=== PATIENT | female | born 1985 | race Caucasian/White ===

== ENCOUNTER 2023-06-11 07:03 | Inpatient (IN) | payer OTHER ==
[2023-06-11] MEDS ORDERED: Acetaminophen 500 MG TAB PO PRN (07:45)
[2023-06-11] MEDS ORDERED: Ondansetron PF 4 MG/2 ML Vial IVP PRN ×3 (07:45→18:27)
[2023-06-11] MEDS ORDERED: fentaNYL 50 mcg/mL 1 mL Vial SLOW IVP PRN (07:45)
[2023-06-11] MEDS ORDERED: Diphenoxylate HCl/Atropine Tablet PO PRN (07:45)
[2023-06-11] MEDS ORDERED: hydrALAZINE 20 MG/ML VIAL SLOW IVP PRN ×2 (07:45→18:27)
[2023-06-11] MEDS ORDERED: Tranexamic Acid 1,000 MG/10 ML VIAL IVP PRN (07:45)
[2023-06-11] MEDS ORDERED: Misoprostol 200 MCG TAB PR PRN (07:45)
[2023-06-11] MEDS ORDERED: Methylergonovine 0.2 MG/ML VIAL IM PRN (07:45)
[2023-06-11] MEDS ORDERED: NS w/ Oxytocin 30 units 500 ML IV SCH ×2 (07:45→18:27)
[2023-06-11] MEDS ORDERED: Carboprost 250 MCG/ML AMP IM PRN (07:45)
[2023-06-11] MEDS ORDERED: Ibuprofen 800 MG TAB PO PRN (07:48)
[2023-06-11] MEDS ORDERED: HYDROcodone/Acetaminophen 5/325 mg Tablet PO PRN ×2 (07:48→18:27)
[2023-06-11] MEDS ORDERED: Lidocaine 1% (PF) 30 ML VIAL SC PRN (07:48)
[2023-06-11] MEDS ORDERED: Acetaminophen/Codeine 30-300mg Tablet PO PRN (07:48)
[2023-06-11 07:50] VITALS: BMI 38.6
[2023-06-11] MEDS ORDERED: Bupivacaine 0.25% HCL 30 ML VIAL ONE (08:00)
[2023-06-11] MEDS ORDERED: fentaNYL/Ropivacaine Epidural 100 ML ONE (08:15)
[2023-06-11] MEDS: Lactated Ringer's 1,000 ML IV SCH ×2 (08:28→10:41)
[2023-06-11 08:33] LABS: Hematocrit 35.8 % (34.9-44.5); Hemoglobin 12.2 g/dL (12.0-15.5); Mean Corpuscular HGB CONC 34.1 g/dL (32.0-36.0); Mean Corpuscular Hemoglobin 29.1 pg (27.0-33.0); Mean Corpuscular Volume 85.4 fl (81.6-98.3); Mean Platelet Volume 10.3 fl (7.4-10.4); Platelet Count 267 10x3/uL (150-450); RBC Distribution Width 14.6 % (11.5-14.5); Red Blood Cell (RBC) Count 4.19 10x6/uL (3.90-5.03)
[2023-06-11 09:02] LABS: Syphilis Antibody Nonreactive (Nonreactive); Syphilis Antibody Index 0.06 S/CO (<1.00 Non-Reactive)
[2023-06-11 09:03] LABS: HBSAg Index 0.14 S/CO (0-0.99); Hep B Surf Ag - L&D Non-Reactive S/CO (NonReactive)
[2023-06-11] MEDS ORDERED: Naloxone HCl 0.4 mg/ml Vial IVP PRN ×2 (09:26)
[2023-06-11] MEDS ORDERED: Moisturizing Cream (Eucerin) 113 GM JAR TOP PRN (09:26)
[2023-06-11] MEDS ORDERED: Acetaminophen 325 MG TAB PO PRN (09:26)
[2023-06-11] MEDS ORDERED: Promethazine HCl 25 MG/ML VIAL IM PRN ×2 (09:26→18:27)
[2023-06-11] MEDS ORDERED: Lactated Ringer's 500 ML IV PRN (09:26)
[2023-06-11] MEDS ORDERED: ePHEDrine Sulfate 50 MG/10 ML VIAL SLOW IVP PRN (09:26)
[2023-06-11] MEDS ORDERED: diphenhydrAMINE 50 MG/ML VIAL IVP PRN (09:26)
[2023-06-11] MEDS ORDERED: fentaNYL 2 mcg/Ropivacaine 0.2% Epidural 100 ML CADD EPIDURAL SCH (09:30)
[2023-06-11] MEDS ORDERED: Communication Order-Pharmacy FS SCH (09:30)
[2023-06-11] MEDS ORDERED: Bisacodyl 10 MG SUPP PR PRN (18:27)
[2023-06-11] MEDS ORDERED: diphenhydrAMINE 25 MG CAP PO PRN (18:27)
[2023-06-11] MEDS ORDERED: Measles/Mumps/Rubella 10 MCG/0.5 ML VIAL SC ONE (18:27)
[2023-06-11] MEDS ORDERED: Lanolin Ointment 7 GM TUBE TOP PRN (18:27)
[2023-06-11] MEDS ORDERED: Misoprostol 200 MCG TAB VAG PRN (18:27)
[2023-06-11] MEDS ORDERED: Boostrix 0.5 ML (Tdap) VIAL (>/=7 yrs of age) IM ONE (18:27)
[2023-06-11] MEDS ORDERED: Varicella virus, LIVE 0.5 ML VIAL SC ONE (18:27)
[2023-06-11] MEDS ORDERED: Methylergonovine 0.2 MG TAB PO PRN (18:27)
[2023-06-11] MEDS ORDERED: Benzocaine-Menthol 82.5 ML CAN TOP PRN (18:27)
[2023-06-11] MEDS ORDERED: Preparation H Ointment 28 GM TUBE PR PRN (18:27)
[2023-06-11] MEDS ORDERED: Zolpidem Tartrate 5 MG TAB PO PRN (18:27)
[2023-06-11] MEDS ORDERED: Milk Of Magnesia 30 ML UDCUP PO PRN (18:27)
[2023-06-11] MEDS: Docusate 100 MG CAP PO SCH (21:34)
[2023-06-11] MEDS: HYDROcodone/Acetaminophen 5/325 mg Tablet PO PRN (21:41)
[2023-06-12] MEDS: Ibuprofen 800 MG TAB PO SCH ×3 (01:39→18:37)
[2023-06-12 05:32] LABS: Hematocrit 33.4 % (34.9-44.5); Hemoglobin 11.2 g/dL (12.0-15.5); Mean Corpuscular HGB CONC 33.5 g/dL (32.0-36.0); Mean Corpuscular Hemoglobin 29.1 pg (27.0-33.0); Mean Corpuscular Volume 86.8 fl (81.6-98.3); Mean Platelet Volume 9.9 fl (7.4-10.4); Platelet Count 241 10x3/uL (150-450); RBC Distribution Width 14.7 % (11.5-14.5); Red Blood Cell (RBC) Count 3.85 10x6/uL (3.90-5.03); White Blood Cell (WBC) Count 9.2 10x3/uL (3.5-10.5)
[2023-06-12] MEDS: Ferrous Sulfate 325 MG TAB PO SCH ×2 (07:10→11:17)
[2023-06-12] MEDS: Docusate 100 MG CAP PO SCH (07:40)
[2023-06-12] MEDS: HYDROcodone/Acetaminophen 5/325 mg Tablet PO PRN ×2 (07:40→16:24)
[2023-06-12] MEDS ORDERED: Prenatal Vitamin 1 TAB PO SCH (09:00)
[2023-06-12 09:06] VITALS: BP 100/57; TEMP 98.1
== END 2023-06-12 18:50 | disposition home or self-care (01) | DRG 807 ==
LOC: CSHLD/OP 07:03 → CSHLD 07:45 → CSHPP 19:25
PROVIDERS: ADMIT Obstetrics & Gynecology; ATTEND Obstetrics & Gynecology
PROC: 10E0XZZ Delivery of Products of Conception, External Approach (ICD-10-PCS; principal; 2023-06-11)
DX: O80 Encounter for full-term uncomplicated delivery (principal); Z37.0 Single live birth; Z3A.37 37 weeks gestation of pregnancy
CPT/HCPCS: 36415; 51702; 85027; 86780; 86850; 86900; 86901; 87340; 99285; J2405; J2590; J7120; S0020

== ENCOUNTER 2024-08-31 08:23 | Day surgery (SDC) | payer OTHER ==
[2024-08-31 08:48] VITALS: BMI 35.4
[2024-08-31] MEDS ORDERED: hydrALAZINE 20 MG/ML VIAL SLOW IVP PRN (09:41)
[2024-08-31 11:28] LABS: #Basophils 0.01 10x3/uL (0.0-0.2); #Eosinophils 0.07 10x3/uL (0.0-0.5); #Monocytes 0.32 10x3/uL (0.0-1.1); #Neutrophils 4.66 10x3/uL (1.5-8.4); %Basophils 0.1 % (0.0-2.0); %Lymphocytes 23.9 % (18.0-47.0); %Monocytes 4.8 % (0.0-10.0); %Neutrophils 69.8 % (40.0-75.0); ALT (SGPT) 9 U/L (8-55); AST (SGOT) 18 U/L (5-34); Alkaline Phosphatase 74 U/L (40-110); Anion Gap 16 mmol/L (10-20); BUN (Urea Nitrogen) Less than 4 mg/dL (7.0-18.7); Bilirubin, Total 0.7 mg/dL (0.2-1.2); Calc. Creatinine Clearance 188 mL/min (70-130); Calcium 9.9 mg/dL (7.8-10.44); Carbon Dioxide 17 mmol/L (22-29); Chloride 109 mmol/L (98-107); Estimated GFR 119; Globulin 4.4 g/dL (2.4-3.5); Glucose 87 mg/dL (70-105); Hematocrit 34.5 % (34.9-44.5); Hemoglobin 11.2 g/dL (12.0-15.5); Mean Corpuscular HGB CONC 32.5 g/dL (32.0-36.0); Mean Corpuscular Hemoglobin 28.8 pg (27.0-33.0); Mean Corpuscular Volume 88.7 fL (81.6-98.3); Mean Platelet Volume 9.2 fL (7.4-10.4); Platelet Count 253 10x3/uL (150-450); Potassium 4.5 mmol/L (3.5-5.1); Protein, Total 7.4 g/dL (6.0-8.3); RBC Distribution Width 13.6 % (11.5-14.5); Red Blood Cell (RBC) Count 3.89 10x6/uL (3.90-5.03); Sodium 137 mmol/L (136-145); White Blood Cell (WBC) Count 6.7 10x3/uL (3.5-10.5)
[2024-08-31 11:41] LABS: Bilirubin Neg (Negative); Blood, Urine Negative (Negative); Clarity Clear (Clear); Glucose, Urine (Dipstick) Normal (Negative); Ketone, Urine Negative (Negative); Leukocyte Negative (Negative); Nitrite Negative (Negative); Protein, Urine (Dipstick) 15 mg/dl (Neg-Trace); Urobilinogen Normal mg/dL (Less than 2)
== END 2024-08-31 12:10 | disposition home or self-care (01) ==
LOC: CSHLD/OP 08:23
PROVIDERS: ATTEND Obstetrics & Gynecology
DX: O99.891 Other specified diseases and conditions complicating pregnancy (principal); R10.9 Unspecified abdominal pain; O99.282 Endocrine, nutritional and metabolic diseases complicating pregnancy, second trimester; E03.9 Hypothyroidism, unspecified; Z79.890 Hormone replacement therapy; Z79.899 Other long term (current) drug therapy; Z3A.27 27 weeks gestation of pregnancy
CPT/HCPCS: 36415; 76815; 80053; 81003; 85025

== ENCOUNTER 2024-11-03 08:47 | Day surgery (SDC) | payer OTHER ==
[2024-11-03 09:56] LABS: Fetal Membranes Rupture No Membranes Rupture (No Rupture)
[2024-11-03] MEDS ORDERED: hydrALAZINE 20 MG/ML VIAL SLOW IVP PRN (10:27)
== END 2024-11-03 10:45 | disposition home health service (06) ==
LOC: CSHLD/OP 08:47
PROVIDERS: ATTEND Obstetrics & Gynecology
DX: Z03.71 Encounter for suspected problem with amniotic cavity and membrane ruled out (principal); O09.43 Supervision of pregnancy with grand multiparity, third trimester; O09.523 Supervision of elderly multigravida, third trimester; O99.283 Endocrine, nutritional and metabolic diseases complicating pregnancy, third trimester; E03.9 Hypothyroidism, unspecified; Z79.899 Other long term (current) drug therapy; Z79.890 Hormone replacement therapy; Z3A.36 36 weeks gestation of pregnancy
CPT/HCPCS: 84112; 99283

== ENCOUNTER 2024-11-06 10:16 | Inpatient (IN) | payer OTHER ==
[~2024-11-06 10:16] MED LIST: Bupivacaine 0.25% HCL 30 ML VIAL ONE
[2024-11-06 10:46] VITALS: BMI 38.2
[2024-11-06 11:14] LABS: Hematocrit 36.2 % (34.9-44.5); Hemoglobin 12.1 g/dL (12.0-15.5); Mean Corpuscular HGB CONC 33.4 g/dL (32.0-36.0); Mean Corpuscular Hemoglobin 28.6 pg (27.0-33.0); Mean Corpuscular Volume 85.6 fL (81.6-98.3); Mean Platelet Volume 10.5 fL (7.4-10.4); Platelet Count 297 10x3/uL (150-450); RBC Distribution Width 15.5 % (11.5-14.5); Red Blood Cell (RBC) Count 4.23 10x6/uL (3.90-5.03); White Blood Cell (WBC) Count 7.54 10x3/uL (3.5-10.5)
[2024-11-06 11:55] LABS: HBsAg Index 0.23 S/CO (0-0.99); HIV (1/2) Antibody/Antigen Non-Reactive (NonReactive); HIV 1/2 INDEX 0.05 S/CO (<1.00); Hep B Surf Ag - L&D Non-Reactive S/CO (NonReactive)
[2024-11-06 11:56] LABS: Syphilis Antibody Nonreactive (Nonreactive); Syphilis Antibody Index 0.06 S/CO (<1.00 Non-Reactive)
[2024-11-06] MEDS ORDERED: Lidocaine 1% (PF) 30 ML VIAL SC PRN (12:11)
[2024-11-06] MEDS ORDERED: HYDROcodone/Acetaminophen 5/325 mg Tablet PO PRN (12:11)
[2024-11-06] MEDS ORDERED: Ibuprofen 800 MG TAB PO PRN (12:11)
[2024-11-06] MEDS ORDERED: Oxytocin 30 units/NS 500 ML 500 ML IV SCH (12:15)
[2024-11-06] MEDS ORDERED: ePHEDrine Sulfate 50 MG/10 ML VIAL SLOW IVP PRN (12:42)
[2024-11-06] MEDS ORDERED: Ondansetron PF 4 MG/2 ML Vial IVP PRN ×2 (12:42→16:22)
[2024-11-06] MEDS ORDERED: Promethazine HCl 25 MG/ML VIAL IM PRN ×2 (12:42→16:22)
[2024-11-06] MEDS ORDERED: Lactated Ringer's 500 ML IV PRN (12:42)
[2024-11-06] MEDS ORDERED: Moisturizing Cream (Eucerin) 113 GM JAR TOP PRN (12:42)
[2024-11-06] MEDS ORDERED: Naloxone HCl 0.4 mg/ml Vial IVP PRN ×2 (12:42)
[2024-11-06] MEDS ORDERED: diphenhydrAMINE 50 MG/ML VIAL IVP PRN (12:42)
[2024-11-06] MEDS ORDERED: Communication Order-Pharmacy FS SCH (12:45)
[2024-11-06] MEDS ORDERED: fentaNYL 2 mcg/Ropivacaine 0.2% Epidural 100 ML CADD EPIDURAL SCH (12:45)
[2024-11-06] MEDS: fentaNYL/Ropivacaine Epidural 100 ML ONE (12:45)
[2024-11-06] MEDS: Oxytocin 30 units/NS 500 ML 500 ML IV SCH (16:15)
[2024-11-06] MEDS ORDERED: Bisacodyl 10 MG SUPP PR PRN (16:22)
[2024-11-06] MEDS ORDERED: hydrALAZINE 20 MG/ML VIAL SLOW IVP PRN (16:22)
[2024-11-06] MEDS ORDERED: Milk Of Magnesia 30 ML UDCUP PO PRN (16:22)
[2024-11-06] MEDS: Acetaminophen 325 MG TAB PO PRN (17:34)
[2024-11-06] MEDS: Ferrous Sulfate 325 MG TAB PO SCH (17:57)
[2024-11-06] MEDS: Carboprost 250 MCG/ML AMP ONE (20:22)
[2024-11-06] MEDS: Methylergonovine 0.2 MG/ML VIAL ONE (20:22)
[2024-11-06] MEDS: Oxytocin 30 units/NS 500 ML 500 ML ONE (20:22)
[2024-11-06] MEDS: Boostrix 0.5 ML (Tdap) VIAL (>/=7 yrs of age) IM ONE (20:23)
[2024-11-06] MEDS: Misoprostol 200 MCG TAB ONE (20:23)
[2024-11-06] MEDS: Docusate 100 MG CAP PO SCH (21:39)
[2024-11-06] MEDS: Ibuprofen 800 MG TAB PO SCH (21:39)
[2024-11-07] MEDS: Levothyroxine 150 MCG TAB PO SCH (05:39)
[2024-11-07] MEDS: HYDROcodone/Acetaminophen 5/325 mg Tablet PO PRN (13:16)
[2024-11-07 20:26] VITALS: TEMP 97.7
[2024-11-08 08:48] VITALS: BP 138/71
== END 2024-11-08 12:45 | disposition home or self-care (01) | DRG 807 ==
LOC: CSHLD 10:16 → CSHPP 19:40
PROVIDERS: ADMIT Obstetrics & Gynecology; ATTEND Obstetrics & Gynecology
PROC: 10E0XZZ Delivery of Products of Conception, External Approach (ICD-10-PCS; principal; 2024-11-06)
DX: O99.284 Endocrine, nutritional and metabolic diseases complicating childbirth (principal); Z37.0 Single live birth; E03.9 Hypothyroidism, unspecified; Z79.890 Hormone replacement therapy; Z3A.38 38 weeks gestation of pregnancy; O69.89X0 Labor and delivery complicated by other cord complications, not applicable or unspecified
CPT/HCPCS: 51702; 85027; 86780; 86850; 86900; 86901; 87340; 87389; J0665; J2590